=== PATIENT | male | born 1965 | race Two or more races ===

== ENCOUNTER 2023-09-30 12:24 | Emergency (ER) | payer BC, OTHER ==
[~2023-09-30] VITALS: Ht 175.3 cm; Wt 108.4 kg
[2023-09-30 13:28] VITALS: BP 135/72; PULSE 99; RESP 19; TEMP 98.2; O2SAT 93
[2023-09-30] MEDS ORDERED: BENZ200C64 PO (13:55)
[2023-09-30] MEDS ORDERED: AZIT500T66 PO (13:55)
== END 2023-09-30 14:10 | disposition home or self-care (01) ==
LOC: ER 12:24
DX: R91.8 Other nonspecific abnormal finding of lung field (principal); J98.11 Atelectasis; E11.9 Type 2 diabetes mellitus without complications; I10 Essential (primary) hypertension
CPT/HCPCS: 71046

== ENCOUNTER 2024-05-12 13:48 | Emergency (ER) | payer OTHER, MEDICAID ==
[~2024-05-12] VITALS: Ht 177.8 cm; Wt 106.0 kg
[~2024-05-12 13:48] MED LIST: AZIT500T66 PO; BENZ200C64 PO
[2024-05-12 14:34] VITALS: BP 138/79; PULSE 96; RESP 18; TEMP 97.9; O2SAT 96
== END 2024-05-12 14:38 | disposition left against medical advice (07) ==
LOC: EDBD 13:48 → ER 13:48
DX: R53.1 Weakness (principal); Z20.822 Contact with and (suspected) exposure to COVID-19